=== PATIENT | female | born 1960 | race Caucasian/White ===

== ENCOUNTER 2024-09-14 07:26 | Day surgery (SDC) | payer MEDICARE ==
[2024-09-14] MEDS ORDERED: D50W 50 ml Abboject IV ONE (07:27)
[2024-09-14] MEDS ORDERED: propofoL IV ONE (08:53)
--- NOTE | 2024-09-14 10:06 | XRAY ---
Indication: Left SI joint injection. Intraoperative fluoroscopy provided for 10 seconds. Single digital spot image submitted for interpretation demonstrates posterior needle tip projecting over left SI joint. Small amount of contrast injected for needle tip placement. Correlate with intraoperative findings/report.
--- NOTE | 2024-09-14 10:40 | XRAY ---
10 seconds of fluoroscopy was used in surgery for a left sacroiliac joint injection.
== END 2024-09-14 09:26 | disposition home or self-care (01) ==
LOC: SDC-PAIN 07:26
PROVIDERS: ATTEND Psychiatry & Neurology Pain Medicine
DX: M46.1 Sacroiliitis, not elsewhere classified (principal); E11.9 Type 2 diabetes mellitus without complications
CPT/HCPCS: 27096; 72170; 77002; 82947; J2704; Q9966

== ENCOUNTER 2024-10-20 08:02 | Day surgery (SDC) | payer MEDICARE ==
[2024-10-20] MEDS ORDERED: Depo-Medrol 40 MG/ML IM ONE (08:03)
[2024-10-20] MEDS ORDERED: BUPIVACAINE 0.5% VIAL IJ ONE (08:03)
[2024-10-20] MEDS ORDERED: propofoL IV ONE (09:42)
--- NOTE | 2024-10-20 10:43 | XRAY ---
Indication: Left hip injection. Intraoperative fluoroscopy provided for 12 seconds. Single digital spot image submitted for interpretation demonstrates needle tip projecting lateral to left femur neck. Small amount of contrast injected for needle tip placement. Correlate with intraoperative findings/report.
--- NOTE | 2024-10-20 13:13 | XRAY ---
12 seconds of fluoroscopy was used in surgery for a left intra-articular hip injection.
== END 2024-10-20 10:12 | disposition home or self-care (01) ==
LOC: SDC-PAIN 08:02
PROVIDERS: ATTEND Psychiatry & Neurology Pain Medicine
DX: M16.12 Unilateral primary osteoarthritis, left hip (principal); E11.9 Type 2 diabetes mellitus without complications
CPT/HCPCS: 20610; 73501; 77002; 82947; J2704; Q9966

== ENCOUNTER 2024-11-23 09:00 | Day surgery (SDC) | payer MEDICARE ==
[2024-11-23] MEDS ORDERED: dexAMETHasone sodium phosphate IJ ONE (09:01)
[2024-11-23] MEDS ORDERED: Sodium Chloride 0.9(Preservative Free) 10 ML IJ ONE (09:01)
[2024-11-23] MEDS ORDERED: propofoL IV ONE (11:02)
--- NOTE | 2024-11-23 12:34 | XRAY ---
Indication: Left L1-L3 transforaminal SUKHDEEP. Intraoperative fluoroscopy provided for 21 seconds. 7 digital spot images submitted for interpretation demonstrates posterior needle tips projecting over expected left L1 and L2 nerve roots. Small amount of contrast injected for needle tip placement. Correlate with intraoperative findings/report.
--- NOTE | 2024-11-23 12:55 | XRAY ---
21 seconds of fluoroscopy was used in surgery for a left L1-L3 transforaminal SUKHDEEP.
== END 2024-11-23 11:32 | disposition home or self-care (01) ==
LOC: SDC-PAIN 09:00
PROVIDERS: ATTEND Psychiatry & Neurology Pain Medicine
DX: M54.16 Radiculopathy, lumbar region (principal); E11.9 Type 2 diabetes mellitus without complications
CPT/HCPCS: 64483; 64484; 72100; 77003; 82947; J1100; J2704; Q9966